=== PATIENT | male | born 1980 | race Asian ===

== ENCOUNTER 2019-05-24 09:20 | Day surgery (SDC) | payer OTHER ==
[2019-05-20 14:18] VITALS: BMI 29.9
[2019-05-24] MEDS ORDERED: LIDOCAINE HCL/PF 2% SDV 5ML VIAL ONE (09:49)
[2019-05-24] MEDS ORDERED: PROPOFOL 20 ML ONE ×2 (09:50)
[2019-05-24 10:30] VITALS: TEMP 97.6
[2019-05-24 10:57] VITALS: BP 134/76; PULSE 83
--- NOTE | 2019-05-28 10:25 | PATH ---
Surgical Pathology Report Patient Name: JENNIFER MOTA [facility]. Rec. #: [id number] /Age/Gender: 1980 (Age: 38) / M Account: [id number] Location: [facility] Taken: 05/24/2019 Received: 05/24/2019 Reported: 05/28/2019 Physicians: Connor Pack M.D. Specimen(s) Received A: SECOND PORTION OF DUODENUM B: GASTRIC ANTRUM C: LOWER ESOPHAGUS Clinical History GERD Postoperative diagnosis: Distal esophagitis, mild gastritis, small hiatal hernia Final Diagnosis A. SECOND PORTION OF DUODENUM, BIOPSY: DUODENAL MUCOSA WITH NO PATHOLOGIC FINDINGS. B. GASTRIC ANTRUM, BIOPSY: SEVERE CHRONIC ACTIVE GASTRITIS. IMMUNOSTAIN SHOWS NUMEROUS H. PYLORI ORGANISMS. C. LOWER ESOPHAGUS, BIOPSY: ESOPHAGEAL (SQUAMOUS) MUCOSA SHOWING MODERATE ACUTE AND CHRONIC ESOPHAGITIS. NO COLUMNAR EPITHELIUM/ INTESTINAL METAPLASIA IS IDENTIFIED. PAS STAIN IS NEGATIVE FOR FUNGAL ORGANISMS. Electronically Signed Deepa Ayers M.D. Gross Description A. Received in formalin, labeled "biopsy second portion of duodenum" are 2 youssef, irregular portions of soft tissue averaging 0.3 cm. in greatest dimension. The specimens are submitted in toto in one cassette. B. Received in formalin, labeled "biopsy gastric antrum" are 2 youssef, irregular portions of soft tissue measuring 0.3 and 0.5 cm. in greatest dimension. The specimens are submitted in toto in one cassette. C. Received in formalin, labeled "biopsy lower esophagus" is a youssef, irregular portion of soft tissue measuring 0.3 cm. in greatest dimension. The specimen is submitted in toto in one cassette. 05/25/[address] [facility]05/25/2019
== END 2019-05-24 11:00 | disposition home or self-care (01) ==
LOC: FASU-ENDO 09:20
PROVIDERS: ATTEND Internal Medicine Gastroenterology
PROC: 0DB68ZX Excision of Stomach, Via Natural or Artificial Opening Endoscopic, Diagnostic (ICD-10-PCS; 2019-05-24)
PROC: 0DB48ZX Excision of Esophagogastric Junction, Via Natural or Artificial Opening Endoscopic, Diagnostic (ICD-10-PCS; 2019-05-24)
PROC: 0DB98ZX Excision of Duodenum, Via Natural or Artificial Opening Endoscopic, Diagnostic (ICD-10-PCS; principal; 2019-05-24 10:03)
DX: K29.50 Unspecified chronic gastritis without bleeding (principal); K20.8 Other esophagitis; K44.9 Diaphragmatic hernia without obstruction or gangrene; B96.81 Helicobacter pylori [H. pylori] as the cause of diseases classified elsewhere; R12 Heartburn
CPT/HCPCS: 88305-TC; 88342-TC